=== PATIENT | male | born 1970 | race Caucasian/White ===

== ENCOUNTER 2016-11-22 08:17 | Day surgery (SDC) | payer OTHER ==
[~2016-11-22] VITALS: Ht 185.4 cm; Wt 102.3 kg
[2016-11-22] MEDS ORDERED: SODIUM CHLORIDE 0.9% 1,000 ML IV ONE ×2 (08:38→09:00)
[2016-11-22] MEDS ORDERED: TOPI100 PO (08:46)
[2016-11-22] MEDS ORDERED: BACL10TA PO (09:01)
[2016-11-22] MEDS ORDERED: OMEP20 PO (09:01)
[2016-11-22] MEDS ORDERED: PREG75 PO (09:01)
[2016-11-22] MEDS ORDERED: VITAD1000 PO (09:01)
[2016-11-22] MEDS ORDERED: MIRT30 PO (09:01)
[2016-11-22] MEDS ORDERED: METO-325 PO (09:01)
[2016-11-22] MEDS ORDERED: [UNRECOGNIZED DRUG - CODE] PO (09:01)
[2016-11-22] MEDS ORDERED: PROP40TA7 PO (09:01)
[2016-11-22] MEDS ORDERED: MECL-111 PO (09:01)
[2016-11-22] MEDS ORDERED: PRAZ5 PO (09:06)
[2016-11-22] MEDS ORDERED: LURA40 PO (09:06)
[2016-11-22] MEDS ORDERED: SILD25 PO (09:06)
[2016-11-22] MEDS ORDERED: LIDOCAINE HCL/PF 1% 30 ML VIAL ONE (10:41)
[2016-11-22] MEDS ORDERED: IOHEXOL 300 MG/ML 10 ML VIAL ONE (10:41)
[2016-11-22 10:44] VITALS: BP 130/92
[2016-11-22] MEDS ORDERED: SODIUM BICARBONATE 50 MEQ/50 ML VIAL ONE (10:49)
[2016-11-22 11:04] VITALS: BP 122/92
[2016-11-22] MEDS ORDERED: IOHEXOL 300 MG/ML 10 ML VIAL IVP ONE (11:15)
[2016-11-22] MEDS ORDERED: LIDOCAINE 1% 30 ML/SOD BICARB 8.4% 4 ML INJ ONE (11:15)
== END 2016-11-22 11:45 | disposition home or self-care (01) ==
LOC: SDS 08:17
PROVIDERS: ATTEND Physical Medicine & Rehabilitation Pain Medicine
DX: M54.16 Radiculopathy, lumbar region (principal); I10 Essential (primary) hypertension; M19.90 Unspecified osteoarthritis, unspecified site; Z86.73 Personal history of transient ischemic attack (TIA), and cerebral infarction without residual deficits
CPT/HCPCS: 64483; J1040; J3490 ×2; J7030; Q9967